=== PATIENT | female | born 2000 | race Caucasian/White ===

== ENCOUNTER 2025-06-05 08:46 | Emergency (ER) | payer BC, SELFPAY ==
[2025-06-05 08:54] VITALS: BP 122/80
[2025-06-05 09:15] LABS: Hematocrit 40.8 % (37.0-47.0); Hemoglobin 13.5 g/dL (12.0-16.0); Mean Corp Hgb Conc. 33.1 g/dL (33.0-37.0); Mean Corpuscular Volume 102.0 fL (81.0-99.0); Nucleated Red Blood Cells % 0 %; Platelet Count 190 10^3/uL (130-400); Red Cell Dist. Width 11.3 % (11.5-14.5)
[2025-06-05 09:30] LABS: COVID-19 Antigen Negative (Negative)
[2025-06-05 09:50] LABS: ALT (SGPT) 15 U/L (0-35); AST (SGOT) 19 U/L (14-36); Albumin 4.5 g/dl (3.5-5.0); Alkaline Phosphatase 77 U/L (38-126); Blood Urea Nitrogen 8 mg/dl (7-17); Calcium 9.6 mg/dl (8.4-10.2); Carbon Dioxide 25 mmol/L (22-30); Chloride 105 mmol/L (98-107); Glucose 138 mg/dl (70-99); Potassium 4.1 mmol/L (3.5-5.1); Sodium 140 mmol/L (135-145); Total Protein 7.1 g/dl (6.3-8.2); eGFR > 60.00
--- NOTE | 2025-06-05 09:53 | ED.GENMED ---
History of Present Illness
General
Chief Complaint: Throat Problem
Source: patient
Exam Limitations: none
Time Seen by Provider: 06/05/25 09:42
History of Present Illness
History of Present Illness:
24yoF with no significant past medical history presenting for evaluation of a sore throat. Symptoms began 3 days ago and initially felt like a cold. She woke up the following morning with a worsening sore throat, swollen lymph nodes, and a fever
of 101. She was seen at [facility] and had COVID and strep testing which were negative. She was feeling worse the following day and went back to [facility]. She was checked for mononucleosis which was also negative. She was told that she
has a cold but is worried that something more is going on. She had some blood in her mucus today when she coughed and decided to come to the ED. She has a prior history of pneumonia. No known sick contacts.
Phy Exam
General Physical Exam
General Presentation: well appearing and no apparent distress
General Skin: warm and dry
General Habitus: normal
General Mental: alert
ENT Exam
ENT Exam: TM's normal, normocephalic and other (Erythema noted in posterior oropharynx. No exudates. Uvula midline. Normal phonation. No trismus. Tolerating oral secretions without difficulty. )
Additional ENT: +Anterior cervical lymphadenopathy
Cardiovascular Exam
Cardiovascular Exam: regular rate/rhythm
Pulmonary Exam
Pulmonary Exam: lungs clear, no respiratory distress, no rales, no crackles, no rhonchi and no wheezing
Neurological Exam
Neurological Exam: alert
Heidy Coma Scale
Eye Opening: Spontaneous
Verbal Response: Oriented
Motor Response: Obeys Commands
GCS Total Score: 15
Skin Exam
Skin Exam: normal color and warm/dry
Psychiatric Exam
Psychiatric Exam: normal mood/affect
Course
Orders/Labs/Results
Orders:
Orders
06/05/25 09:04
COVID-19 Antigen Urgent
Source: Nasal Swab
Complete Blood Count/With Diff Urgent
Comprehensive Metabolic Panel Urgent
HCG, Serum Qualitative Screen Urgent
Comment: ADD ON
Monotest Urgent
Influenza A+B Rapid Molecular Urgent
VLAD Source: Nasal Swab
Specimen Description:
Date Specimen was Collected: 06/05/25
Time Specimen was Collected: 08:58
Rapid Strep Group A Urgent
VLAD Source: Throat/Pharynx
Specimen Description:
Date Specimen was Collected: 06/05/25
Time Specimen was Collected: 08:58
06/05/25 09:52
Add On- LAB Urgent
Comments:: sst in lab
Tests Added?: hcg qual
06/05/25 09:53
CR Chest - 2 Views Urgent
Comment:
Reason For Exam: hemoptysis
06/05/25 11:04
Dexamethasone [Decadron] 10 mg PO NOW STA
Abnormal Lab Results
06/05/25
09:04
WBC 14.5 H 10^3/uL
(4.8-10.8)
RBC 4.00 L 10^6/uL
(4.20-5.40)
MCV 102.0 H fL
(81.0-99.0)
MCH 33.8 H pg
(27.0-31.0)
RDW 11.3 L %
(11.5-14.5)
Abs Immat Gran (auto) 0.1 H 10^3/uL
(0-0.05)
Absolute Neuts (auto) 12.5 H 10^3/uL
(1.4-6.5)
Absolute Lymphs (auto) 1.0 L 10^3/uL
(1.2-3.4)
Absolute Monos (auto) 1.0 H 10^3/uL
(0.1-0.6)
Neutrophils % 86.0 H %
(42.2-75.2)
Lymphocytes % 6.8 L %
(20.5-51.1)
Glucose 138 H mg/dl
(70-99)
06/05/25 09:04
06/05/25 09:04
Vital Signs
Initial and Last Documented VS:
Initial Vital Signs
Temp Pulse Resp BP Pulse Ox
100.1 F 110 20 122/80 99
06/05/25 08:54 06/05/25 08:54 06/05/25 08:54 06/05/25 08:54 06/05/25 08:54
Last Documented Vital Signs
Temp Pulse Resp BP Pulse Ox
100.1 F 110 20 122/80 99
06/05/25 08:54 06/05/25 08:54 06/05/25 08:54 06/05/25 08:54 06/05/25 09:55
MDM/Problems Addressed
Differential Diagnosis Includes:
24yoF here with sore throat and fevers x 3 days. Had blood in sputum today after coughing. Temp 100.1 on arrival. She is well appearing in no distress. There is posterior oropharyngeal erythema and cervical adenopathy on exam. No clinical evidence
of [employer], RPA, or epiglottitis. Differential diagnosis includes: viral illness, strep pharyngitis, bronchitis, pneumonia
Workup initiated in triage. Leukocytosis noted with a WBC of 14.5. Strep, COVID/flu, and mono testing negative. CXR obtained which is negative for infiltrates. Symptoms suggestive of viral illness. Dose of Decadron given and supportive care
discussed. Given multiple visits both here and urgent care, she was given a 'watch and wait' prescription for azithromycin (PCN allergy) but was advised to only start this if symptoms do not improve in the next 72 hours. ED return precautions
reviewed and she was discharged in stable condition.
*Pulse Oximetry
SaO2: 99
Oxygen Mode of Delivery: Room air
Patient hypoxic: no
*Critical Care Note
Total Time (30-74mins, 75-104mins- exclusive of procedures): Not Applicable
ED Attending Note
-
Portions of this chart may have been created with voice recognition software.� Occasional wrong word or��sound alike� substitutions may have occurred due to the inherent limitations of voice recognition software.
Discharge Plan
Departure
Patient Disposition: Home (Routine Discharge)
Date of Disposition: 06/05/25
Time of Disposition: 11:04
Patient with high blood pressure during this ER visit?: No
Discharge Problem:
Pharyngitis
Instructions: Sore Throat, Adult (DC)
Prescriptions:
New
azithromycin [Zithromax] 250 mg tablet
250 mg PO DAILY Qty: 6 0RF
Rx Instructions:
Take 500mg on day 1 and 250mg the following 4 days
Referrals:
Maranda Ivy CRNP [Family Provider]
Activity Restrictions/Additional Instructions:
Drink plenty of fluids and rest. Use honey, lozenges, and salt water gargles for your sore throat.
You have been given a 'watch and wait' prescription for an antibiotic. You should only take this if symptoms do not improve in the next every 2 hours.
Follow-up your family doctor. Return to the ER with any worsening symptoms including inability to swallow.
Interventions
Interventions:
*Risk Screen - Suicide Last Done: 06/05/25 08:54
*General Assessment Last Done: 06/05/25 08:54
*Neglect/Abuse Screening Last Done: 06/05/25 11:31
*Nursing Disposition Last Done: 06/05/25 11:31
ED-EENT Assessment Last Done: 06/05/25 09:45
ED- Pulmonary Assessment Last Done: 06/05/25 09:45
Discharge Date and Time
Discharge Date/Time: 06/05/25 11:31
Print Language: [place]
[2025-06-05 10:48] LABS: HCG, Serum Qualitative Screen Negative
[2025-06-05] MEDS: DECADRON 10 MG PO (11:16)
== END 2025-06-05 11:31 | disposition home or self-care (01) ==
LOC: EMR 08:46
PROVIDERS: EMERGENCY PHYSICIAN Emergency Medicine; FAMILY PHYSICIAN Nurse Practitioner Family
DX: J02.9 Acute pharyngitis, unspecified (principal); D72.829 Elevated white blood cell count, unspecified; Z88.0 Allergy status to penicillin; Z87.01 Personal history of pneumonia (recurrent)
CPT/HCPCS: 99284; 71046; 80053; 84703; 85025; 86308; 87070; 87502; 87811; 87880